=== PATIENT | female | born 1990 | race African-American/Black ===

== ENCOUNTER 2020-05-08 21:29 | Emergency (ER) | payer OTHER ==
[~2020-05-08] VITALS: Ht 167.6 cm; Wt 78.6 kg
[2020-05-08] MEDS ORDERED: PRENTAB53 PO (21:44)
[2020-05-08 23:17] LABS: BASO % 0.5 % (0.0-1.0); EOS # 0.2 10^3/uL (0.0-0.5); EOS % 1.8 % (0.0-3.0); HEMATOCRIT 38.1 % (36.0-47.0); HEMOGLOBIN 12.5 g/dl (12.0-15.5); LYMPH # 2.2 10^3/uL (1.5-5.0); LYMPH % 26.7 % (24.0-44.0); MEAN CORPUSCULAR HEMOGLOBIN 29.5 pg (27.0-33.0); MEAN CORPUSCULAR HGB CONC 32.8 g/dl (32.0-36.5); MEAN CORPUSCULAR VOLUME 89.9 fl (80.0-96.0); MONO # 0.6 10^3/uL (0.0-0.8); MONO % 7.4 % (2.0-8.0); NEUTROPHILS # 5.2 10^3/uL (1.5-8.5); NEUTROPHILS % 63.2 % (36.0-66.0); PLATELET COUNT, AUTOMATED 233 10^3/uL (150-450); RED BLOOD COUNT 4.24 10^6/uL (4.00-5.40); WHITE BLOOD COUNT 8.2 10^3/uL (4.0-10.0)
[2020-05-08 23:25] LABS: BLOOD UREA NITROGEN 9 MG/DL (7-18); CARBON DIOXIDE LEVEL 27 MEQ/L (21-32); CHLORIDE LEVEL 105 MEQ/L (98-107); CREATININE FOR GFR 0.99 MG/DL (0.55-1.30); GLOMERULAR FILTRATION RATE > 60.0 (>60); GLUCOSE, FASTING 111 MG/DL (70-100); POTASSIUM SERUM 3.6 MEQ/L (3.5-5.1); SODIUM LEVEL 140 MEQ/L (136-145)
[2020-05-09 00:07] LABS: APPEARANCE, URINE CLOUDY (CLEAR); BACTERIA, URINE AUTO NEGATIVE (NEGATIVE); BILIRUBIN, URINE AUTO NEGATIVE (NEGATIVE); BLOOD, URINE BLOOD 2+ (NEGATIVE); COLOR, URINE AMBER (YELLOW); GLUCOSE, URINE (UA) AUTO NEGATIVE (NEGATIVE); KETONE, URINE AUTO NEGATIVE (NEGATIVE); LEUKOCYTE ESTERASE, URINE AUTO NEGATIVE (NEGATIVE); MUCUS, URINE SMALL (NEGATIVE); NITRITE, URINE AUTO NEGATIVE (NEGATIVE); PROTEIN, URINE AUTO 1+ mg/dL (NEGATIVE); RBC, URINE AUTO 2 /HPF (0-3); SPECIFIC GRAVITY URINE AUTO 1.026 (1.002-1.035); SQUAMOUS EPITHELIAL CELL UR AU 11 /HPF (0-6); UROBILINOGEN, URINE AUTO 0.2 mg/dL (0.0-2.0); WBC, URINE AUTO 0 /HPF (0-3)
--- NOTE | 2020-05-09 01:50 | REPVR ---
PROCEDURE INFORMATION: Exam: US , Limited Exam date and time: 05/09/2020 1:06 AM Age: 29 years old Clinical indication: Lmp or gestational age (in weeks): 01/22/20; Antepartum complications; Bleeding; ; Additional info: Vaginal bleeding, 15 weeks TECHNIQUE: Imaging protocol: Real-time ultrasound of the maternal uterus with image documentation. Exam focused on the clinical indication. COMPARISON: No relevant prior studies available. FINDINGS: Gestation: There is a single live intrauterine . heart rate: 147 bpm Presentation: Transverse lie with the head on the maternal left. Placenta: Right lateral and posterior location. Grade 0. No placenta previa or placental abruption. Amniotic fluid: Normal. Amniotic fluid index: 8.9 cm MATERNAL: Uterus: There is a 3.1 cm x 2.7 cm x 3.8 cm fibroid in the anterior midportion of the uterus. There is a 4.9 cm x 4.9 cm x 4.7 cm fibroid in the left lower uterine segment. There is a 5.5 cm x 5.2 cm x 6.4 cm fibroid in the right lower uterine segment. There is a 4.1 cm x 3.1 cm x 4.2 cm fibroid in the right lower posterior uterine segment. Cervix: The cervix is closed and measures 4.7 cm in length. IMPRESSION: 1. Single live intrauterine without evidence for placenta previa or placental abruption. 2. Multiple uterine fibroids. Electronically signed by: Joselito Miller On 05/09/2020 01:50:17 AM
[2020-05-09] MEDS ORDERED: RHOGAM 300 MCG (1500 IU) INJ (J2790) IM ONE (02:15)
[2020-05-09 02:43] LABS: CHLAMYDIA DNA AMPLIFICATION NEGATIVE (NEGATIVE); GC DNA AMPLIFICATION NEGATIVE (NEGATIVE)
[2020-05-09] MEDS ORDERED: METR-265 PO (03:04)
[2020-05-09 03:30] VITALS: BP 109/57
== END 2020-05-09 03:41 | disposition home or self-care (01) ==
LOC: M ED 21:29
DX: O46.92 Antepartum hemorrhage, unspecified, second trimester (principal); O26.892 Other specified pregnancy related conditions, second trimester; R10.2 Pelvic and perineal pain; Z3A.15 15 weeks gestation of pregnancy; Z91.013 Allergy to seafood; Z79.899 Other long term (current) drug therapy
CPT/HCPCS: 36415; 76815; 80048; 81001; 85025; 86850; 86900; 86901; 87086; 87210; 87491; 87591; 96372; 99284; J2790

== ENCOUNTER 2020-07-14 19:47 | Outpatient (CLI) | payer OTHER ==
[~2020-07-14] VITALS: Ht 165.1 cm; Wt 88.5 kg
[~2020-07-14 19:47] MED LIST: METR-265 PO; PRENTAB53 PO
--- NOTE | 2020-07-14 22:06 | IPNPDOC ---
Text Note Date of Service The patient was seen on 07/14/20. NOTE S: 29yo , brayan [id number] @24+6 presents to triage with c/o urinary pain. Denies bleeding, LOF, contractions, states reassuring FM. Denies fever, chills, body aches, back pain, vaginal discharge, burning, itching or odor. Current medications: PNV O: VSS FHR 140, reassuring, appropriate for gestational age, no contractions noted on TOCO Neg UA, Culture pending -CVAT No pubic symphysis tenderness, fundal tenderness, abdominal tenderness Upon questioning pt states difficulty emptying bladder, lower abdominal tenderness and tugging pain which improved with lifting. A:suspected condition not found Normal discomforts of [id number] P:Reviewed comfort measures Safe use of otc medications hydration activity fitted for maternity support belt with expressed relief Reviewed reasons to return for care and contact information with expressed understanding JEFFERY PICKETT CNM July 14, 2020 22:06
== END 2020-07-14 21:40 | disposition home or self-care (01) ==
LOC: M LDO 19:47
PROVIDERS: ATTEND Registered Nurse
DX: O26.892 Other specified pregnancy related conditions, second trimester (principal); R30.0 Dysuria; Z3A.24 24 weeks gestation of pregnancy; Z91.013 Allergy to seafood
CPT/HCPCS: 81001; G0378; G0463

== ENCOUNTER 2020-07-26 18:11 | Outpatient (CLI) | payer OTHER ==
[~2020-07-26] VITALS: Ht 165.1 cm; Wt 88.2 kg
[2020-07-26 18:23] VITALS: BP 109/67
[2020-07-26 19:45] VITALS: BP 109/62
--- NOTE | 2020-07-26 20:00 | IPNPDOC ---
Text Note Date of Service The patient was seen on 07/26/20. NOTE 29 yo at 26+3 weeks gestation presented to L&D with the complaint of rectal bleeding. she reports being on the toilet and passing gas and then there was blood in the toilet. This frightened her. It happened a couple weeks ago too. She denies any pain anywhere to include rectal, vaginal, pelvic, or abdominal. She also denies any vaginal bleeding, discharge, or leakage of fl uid. She endorses feeling lots of movement. Chaperoned by L&D RN Vitals - VSS, afebrile, normotensive, non tachycardic General - AAOX3, sitting up in bed, NAD, pleasant and conversant Abdomen - Gravid uterus appropriate size for gestational age. No fundal tenderness Perineal exam - Normal labia and vaginal introitus. No blood near the vagina. Large external hemorrhoid present with irritation. Digital exam confirmed internal hemorrhoid as well. FHR tracing - Appropriate for gestational age with moderate variability. No decels. No ctx on toco. Suspect blood related to hemorrhoids. No current bleeding. No obstetric complaints. Reassuring status. Recommended fruits and vegetables and stool softeners to maintain regular, soft bowel movements. Follow up in 2 weeks for OB appt a scheduled. Return to care sooner for worsening symptoms or any other urgent concerns. All questions answered. 30 minutes of care Mason Don, I+O Mason SOLIMAN, I+O Vital Signs Date Time Temp Pulse Resp B/P (MAP) Pulse Ox O2 Delivery O2 Flow Rate FiO2 07/26/20 19:45 97.9 89 18 109/62 (78) Room Air BARBARA PINZON DO July 26, 2020 20:00
== END 2020-07-26 20:00 | disposition home or self-care (01) ==
LOC: M LDO 18:11
PROVIDERS: ATTEND Registered Nurse
DX: O22.42 Hemorrhoids in pregnancy, second trimester (principal); Z3A.26 26 weeks gestation of pregnancy; Z91.013 Allergy to seafood
CPT/HCPCS: G0378; G0463

== ENCOUNTER 2020-10-08 07:14 | Inpatient (IN) | payer OTHER ==
[~2020-10-08] VITALS: Ht 167.6 cm; Wt 90.0 kg
[~2020-10-08 07:14] MED LIST changes: +PREN1CHW PO; +ceFAZolin SOD 2 GM in IV 1 EA IV ONE
[2020-10-08 08:23] VITALS: BP 113/73
[2020-10-08 08:40] LABS: HEMATOCRIT 38.2 % (36.0-47.0); HEMOGLOBIN 12.8 g/dl (12.0-15.5); MEAN CORPUSCULAR HEMOGLOBIN 30.3 pg (27.0-33.0); MEAN CORPUSCULAR HGB CONC 33.5 g/dl (32.0-36.5); MEAN CORPUSCULAR VOLUME 90.5 fl (80.0-96.0); PLATELET COUNT, AUTOMATED 190 10^3/uL (150-450); RED BLOOD COUNT 4.22 10^6/uL (4.00-5.40); WHITE BLOOD COUNT 7.5 10^3/uL (4.0-10.0)
[2020-10-08] MEDS: LR 1,000 ML IV SCH ×2 (09:00→17:28)
[2020-10-08] MEDS ORDERED: MORPHINE PRES-FREE INJ 10 MG/10 ML VIAL (J2274) As Ordered ONE (09:24)
[2020-10-08] MEDS ORDERED: KETOROLAC 60MG 2ML VIAL As Ordered ONE (09:25)
[2020-10-08] MEDS ORDERED: PHENYLephrine 500MCG 5ML (100MCG/ML) SYRINGE As Ordered ONE (09:25)
[2020-10-08] MEDS ORDERED: ePHEDrine SULFATE 25 MG/5 ML(5MG/ML) SYRINGE As Ordered ONE (09:25)
[2020-10-08] MEDS ORDERED: OXYTOCIN INJ 10 UNITS/ML VIAL (J2590) As Ordered ONE (09:25)
[2020-10-08] MEDS ORDERED: dexameTHASONE 4 MG/ML 1ML VIAL (J1100 PER 1MG) As Ordered ONE (09:25)
[2020-10-08] MEDS ORDERED: OXYTOCIN 30 UNITS IN 0.9% NaCl 500ML IV BAG (J2590) As Ordered ONE ×2 (09:26→12:29)
[2020-10-08] MEDS: BICITRA 30ML SOLN UDC PO SCH (10:21)
[2020-10-08] MEDS ORDERED: NALOXONE INJ 0.4MG/1ML VIAL (J2310 PER 1MG) IV PRN ×2 (10:34)
[2020-10-08] MEDS ORDERED: ONDANSETRON 4MG/2ML VIAL IV PRN ×2 (10:34→12:35)
[2020-10-08] MEDS ORDERED: diphenhydrAMINE 50MG/ML VIAL (J1200) IV PRN (10:34)
[2020-10-08] MEDS ORDERED: NALBUPHINE HCL 10 MG/ML AMP (J2300) IV PRN ×2 (10:34→12:35)
[2020-10-08] MEDS ORDERED: METOCLOPRAMIDE INJ 10MG/2ML VIAL (J2765 PER 1) IV PRN (10:34)
[2020-10-08 11:28] LABS: CORD GAS ABE V -1.1; CORD GAS O2 SAT V 51.7 %; CORD GAS PCO2 V 46.9 mmHg; CORD GAS PH V 7.345 UNITS; CORD GAS PO2 V 20.9 mmHg; CORD GAS SBC V 22.4 MEQ/L; CORD GAS TCO2 V 26.5 MEQ/L
[2020-10-08 11:30] LABS: CORD GAS ABE A -2.7; CORD GAS HCO3 A 25.1 MEQ/L; CORD GAS O2 SAT A 18.7 %; CORD GAS PCO2 A 55.1 mmHg; CORD GAS PH A 7.276 UNITS; CORD GAS PO2 A 12.1 mmHg; CORD GAS SBC A 20.4 MEQ/L; CORD GAS TCO2 A 26.8 MEQ/L
[2020-10-08] MEDS ORDERED: ACETAMINOPHEN 500 MG TAB PO PRN (12:05)
[2020-10-08] MEDS ORDERED: SIMETHICONE 80MG CHEW TAB PO PRN (12:05)
[2020-10-08] MEDS ORDERED: PROMETHAZINE 25 MG TAB PO PRN (12:05)
[2020-10-08] MEDS ORDERED: OXYTOCIN DRIP 30 UNITS in IV 1 EA IV SCH (12:05)
[2020-10-08] MEDS ORDERED: oxyCODONE 5MG TAB PO PRN ×2 (12:05→12:35)
[2020-10-08] MEDS ORDERED: MEASLES,MUMPS,RUBELLA VACCINE INJ (MMR-II) (90707) SC SCH (12:05)
[2020-10-08] MEDS ORDERED: DOCUSATE SODIUM 100MG CAPSULE PO PRN (12:05)
[2020-10-08] MEDS ORDERED: IBUPROFEN 800 MG TAB PO PRN (12:05)
[2020-10-08] MEDS ORDERED: RHOGAM 300 MCG (1500 IU) INJ (J2790) IM SCH (12:05)
[2020-10-08] MEDS ORDERED: METOCLOPRAMIDE INJ 10MG/2ML VIAL (J2765 PER 1) As Ordered ONE (12:07)
[2020-10-08] MEDS ORDERED: MEPERIDINE INJ 25 MG/ML VIAL (J2175) IV PRN (12:35)
[2020-10-08] MEDS ORDERED: HYDROMORPHONE HCL 0.5 MG/ 0.5 ML SYRINGE (J1170 PER 1) IV PRN (12:35)
[2020-10-08] MEDS ORDERED: fentaNYL 100 MCG/2 ML INJECTION (J3010) IV PRN (12:35)
[2020-10-08] MEDS ORDERED: ONDANSETRON 4MG/2ML VIAL As Ordered ONE (13:01)
[2020-10-08] MEDS ORDERED: LR 1,000 ML IV ONE ×2 (13:30→21:45)
--- NOTE | 2020-10-08 13:36 | RO ---
OPERATIVE NOTE DATE OF OPERATION: 10/08/2020 PREOPERATIVE DIAGNOSIS: History of myomectomy, enlarged fibroid uterus. POSTOPERATIVE DIAGNOSIS: History of myomectomy, enlarged fibroid uterus. PROCEDURE: Primary . SURGEON: Darin French DO HUMANITIES DIVISION CHAIR: Omega De Guzman DO ANESTHESIA: Spinal. IV FLUIDS: 1100 mL LR. URINE OUTPUT: 200 mL via Adams catheter. EBL: 600 mL. ANTIBIOTICS: 2 gm Ancef before case start. COMPLICATIONS: None. OPERATIVE FINDINGS: Viable male infant found and delivered in cephalic presentation. Clear amniotic fluid noted upon entry into the uterus. weight 2750 grams or 6 pounds 1 ounce. Apgars 8 and 9. Uterus appeared extensively enlarged with large fundal fibroid and lower uterine segment anterior fibroid. Scars throughout the uterus consistent with prior myomectomy. Fallopian tubes and ovaries unable to be visualized bilaterally. DESCRIPTION OF PROCEDURE: The risks, benefits, indications, and alternatives of the procedure were reviewed with the patient and informed consent was obtained. The patient was taken to the operating room where spinal anesthesia was obtained and found to be adequate. She was then prepped and draped in the usual sterile fashion in the dorsal supine position with a leftward tilt. A surgical time out was then performed and the patient's identity and planned procedure were verified with the operative team. A Pfannenstiel skin incision was then made with a scalpel and carried through to the underlying layer of fascia using Bovie electrocautery. The fascia was incised in the midline and the incision was extended laterally with Thompson scissors. The superior aspect of the fascial incision was grasped with Jeannine clamps, elevated, and the underlying rectus muscles were dissected off with Thompson scissors. Attention was then turned to the inferior aspect of this incision, which in similar fashion, was grasped, tented up with Jeannine clamps and the rectus muscles were dissected off via blunt dissection and with Thompson scissors. The rectus muscles were then in the midline. The peritoneum was identified, tented up, and entered digitally. The peritoneal incision was then extended horizontally and superiorly with good visualization of the bladder. A mobius self-retaining retractor was then introduced into the abdomen. The uterus was inspected. A large fundal fibroid was noted anteriorly. There was a lower uterine segment fibroid low on the uterus just superior to the bladder approximately 5 cm in size. The uterus had multiple defects consistent with prior myomectomy, including a large defect in the middle. The fallopian tubes and ovaries were unable to be visualized bilaterally. The uterine incision was placed superiorly to the vesicouterine peritoneum at a prior defect from her myomectomy. The mid uterus was incised in a transverse fashion with the scalpel. The amniotic sac was artificially ruptured, productive of clear fluid. The uterine incision was then extended manually and with bandage scissors on both sides. The infant was found to be in cephalic presentation. The baby was then delivered without difficulty through the hysterotomy. The cord was doubly clamped and cut. The infant was handed off to the awaiting team. The placenta was then removed manually with gentle traction on the cord. The uterus was then cleared of all clots and debris. The uterine incision was then repaired with #0 Vicryl suture in a running, locked fashion. A [id number] suture was placed in the midline of the hysterotomy to approximate the extended tissue. A second suture layer of #0 Monocryl was then used to imbricate the hysterotomy in a vertical fashion. Irrigation was then performed. The hysterotomy was noted to be hemostatic. A small degree of oozing bleeding was noted just inferior to the hysterotomy and this was controlled with [id number] sutures of 3-0 Vicryl. Inspection of hysterotomy and lower uterine segment revealed excellent hemostasis. Roberto was applied to the hysterotomy and the lower uterine segment. The Mobius self-retaining retractor was then removed from the patient's abdomen. The peritoneum was then closed with 3-0 Vicryl suture in running fashion. The fascia was closed with #0 Vicryl suture in a running fashion. The subcutaneous fat was then closed with 3-0 Vicryl suture in a running fashion. The skin was then closed with 4-0 Monocryl suture in a subcuticular fashion. The incision was then dressed with a pressure dressing. At the completion of the case a bimanual exam was performed which revealed good uterine tone and minimal vaginal bleeding. The patient tolerated the procedure well. Sponge, instrument, needle, and lap counts were correct x3. The patient was taken to the recovery room in stable condition. FABIOLA
[2020-10-08] MEDS ORDERED: diphenhydrAMINE 50MG/ML VIAL (J1200) IV STA (13:47)
[2020-10-08 13:48] VITALS: BP 135/77
[2020-10-08 14:21] VITALS: BP 125/73
[2020-10-08 15:19] VITALS: BP 136/74
[2020-10-08] MEDS: KETOROLAC 30 MG/ML 1ML VIAL IV SCH ×2 (17:29→23:39)
[2020-10-08 18:04] VITALS: BP 117/66
[2020-10-08 21:10] VITALS: BP 116/64
[2020-10-08 22:11] LABS: HEMATOCRIT 36.3 % (36.0-47.0); MEAN CORPUSCULAR HEMOGLOBIN 30.6 pg (27.0-33.0); MEAN CORPUSCULAR HGB CONC 33.1 g/dl (32.0-36.5); MEAN CORPUSCULAR VOLUME 92.6 fl (80.0-96.0); PLATELET COUNT, AUTOMATED 171 10^3/uL (150-450); RED BLOOD COUNT 3.92 10^6/uL (4.00-5.40); WHITE BLOOD COUNT 13.4 10^3/uL (4.0-10.0)
[2020-10-09] MEDS: LR 1,000 ML IV SCH ×3 (01:13→21:35)
[2020-10-09 02:00] VITALS: BP 112/60
[2020-10-09] MEDS: KETOROLAC 30 MG/ML 1ML VIAL IV SCH (05:52)
[2020-10-09 06:00] VITALS: BP 118/67
[2020-10-09] MEDS: BICITRA 30ML SOLN UDC PO SCH (06:00)
[2020-10-09] MEDS ORDERED: LR 1,000 ML IV ONE (06:50)
[2020-10-09 07:11] LABS: HEMATOCRIT 31.5 % (36.0-47.0); HEMOGLOBIN 10.5 g/dl (12.0-15.5); MEAN CORPUSCULAR HEMOGLOBIN 30.7 pg (27.0-33.0); MEAN CORPUSCULAR HGB CONC 33.3 g/dl (32.0-36.5); MEAN CORPUSCULAR VOLUME 92.1 fl (80.0-96.0); PLATELET COUNT, AUTOMATED 192 10^3/uL (150-450); RED BLOOD COUNT 3.42 10^6/uL (4.00-5.40)
[2020-10-09 07:34] LABS: ALBUMIN 2.2 GM/DL (3.2-5.2); ALT/SGPT 23 U/L (12-78); BILIRUBIN,TOTAL 0.3 MG/DL (0.2-1.0); BLOOD UREA NITROGEN 8 MG/DL (7-18); CALCIUM LEVEL 8.8 MG/DL (8.5-10.1); CARBON DIOXIDE LEVEL 26 MEQ/L (21-32); CHLORIDE LEVEL 109 MEQ/L (98-107); CREATININE FOR GFR 0.72 MG/DL (0.55-1.30); GLOMERULAR FILTRATION RATE > 60.0 (>60); GLUCOSE, FASTING 84 MG/DL (70-100); SODIUM LEVEL 141 MEQ/L (136-145); TOTAL PROTEIN 5.2 GM/DL (6.4-8.2)
[2020-10-09] MEDS ORDERED: ISOVUE-370 76% 100ML VIAL As Ordered ONE (07:44)
[2020-10-09] MEDS: PRENATAL VITAMINS CHEWABLE TABLET PO SCH (08:32)
--- NOTE | 2020-10-09 08:34 | REP ---
INDICATION: post c section oliguria. Please assess ureters and bladder. COMPARISON: None. TECHNIQUE: A bolus 100 mL Isovue 370 scanning through the abdomen and pelvis with both coronal and sagittal reconstructions provided. Delayed images were also performed. FINDINGS: CT abdomen/pelvis: There is some basilar subsegmental atelectasis posteriorly in the deep sulci of the lower lobes left greater than right. And no definite effusion. No gross cardiomegaly pericardial thickening or effusion. No hiatal hernia liver, spleen, gallbladder, pancreas, adrenal glands and stomach were grossly unremarkable. Abdominal the portion of the colon shows stool and gas present there is trace amount of fluid in the peritoneal gutter on the left more than right. No perihepatic or perisplenic ascites. Stool and gas throughout the colon. The inferior margin of the colon is a irregular rim calcified mass may reflect a pedunculated calcified fibroid from the uterus the uterus is very large in this patient is status post section it measures 23 x 2415.8 cm. Heterogeneous low-attenuation areas scattered throughout consistent with fibroids. There is low-density heterogeneous nature in the endometrial cavity suggesting blood products. There is a trace amount of the free air are related to the just completed section. Some subcutaneous air in the anterior abdominal noted wall as well. The kidneys show symmetric enhancement. There is no mass, cyst, stone or hydronephrosis. I see no definite ureteral dilatation on the delayed images. Adams catheter in the bladder and contrast on delayed images noted within the bladder. There is no pelvic ascites or contrast leak. Trace amount of air in the bladder likely related to Adams catheter insertion. No ventral or inguinal hernia. Small bowel loops in the upper abdomen unremarkable. Distal left colon sigmoid and rectum unremarkable. Bone window review shows no spine, pelvis, hip or visible rib abnormalities. IMPRESSION: 9 1. Postoperative changes with the small amounts of free intraperitoneal air related to section. Very large uterus with heterogeneous myometrium consistent with fibroids as seen on Ob ultrasound 05/09/2020. Uterus measures 24 x 23 x 15.8 cm. Some of heterogeneous fluid in the endometrial cavity. Apparent pedunculated heavily calcified fibroid along the right lateral aspect of the uterus abutting the cecum. 2. Colon, small bowel loops, stomach and appendix grossly unremarkable. 3. Bilateral kidneys with symmetric enhancement, no obstruction, ureteral dilatation or urinary ascites evident. Contrast reaches the bladder with a Adams catheter in the bladder. <Electronically signed by Minh Fritz > 10/09/20 [id number]
[2020-10-09] MEDS: oxyCODONE 5MG TAB PO PRN ×2 (08:40→18:03)
[2020-10-09 10:00] VITALS: BP 118/59
--- NOTE | 2020-10-09 10:19 | IPNPDOC ---
Progress Note Date of Service: Oct 09, 2020 Progress Note 29 yo female POD#1 s/p uncomplicated, scheduled PLTCS yesterday due to a previous a history of extensive myomectomy. Overnight, she had minimal urine output. She hasn't been able to tolerate PO intake secondary to nausea and vomiting. This morning Ivonne reports feeling better. She was able to tolerate some small sips without vomiting. Pain is well controlled. She has been ambulating. Lochia is minimal. Vitals - VSS, afebrile, normotensive, non tachycardic General - AAOX3, sitting up in bed, pleasant and conversant, NAD. Facial edema noted. Abdomen - enlarged fibroid uterus. Soft. Minimal tenderness to palpation. Bandage in place over incision. No strikethrough. Extremities - SCDs in place. Edematous lower extremities - chung bag at bedside, clear urine but dark appearing. ~80ml in bag UO - oliguric. <30ml / hour Labs: pre op H/H ~ ---> post op this AM ~01/13 BMP this AM - 141/5.0---109/26--8/0.72<84 AST/ALT this AM - Rads (CT ab/pel with contrast this AM) No acute findings. Enlarged fibroid uterus. Normal appearing bladder and ureters. Trace free air and trace fluid c/w recent c section. Bowel unremarkable. No extravasation of contrast. Clinically Ivonne appears well. Oliguria likely secondary to dehydration from multiple episodes of vomiting and recent surgery. She may also be third spacing given her generalized edema. No evidence of surgical complication such as bleeding or urinary tract injury. Will maintain continuous IV fluids with boluses as needed. Could also consider dose of lasix if edema / third spacing continues to be a concern. Kidney function remains normal. Otherwise continue routine post op care. All patient and questions answered. Manolo VS, I&O, 24H, Mason Vital Signs/I&O Vital Signs Date Time Temp Pulse Resp B/P (MAP) Pulse Ox O2 Delivery O2 Flow Rate FiO2 10/09/20 08:45 18 Room Air 10/09/20 06:00 98.2 90 118/67 (84) 99 I&O- Last 24 Hours up to 6 AM 10/09/20 06:00 Intake Total 3573 ml Output Total 1026 ml Balance 2547 ml Laboratory Data 24H LABS Laboratory Tests 2 10/08/20 11:12: Cord Arterial Blood pH 7.276, Cord Arterial Blood PCO2 55.1, Cord Arterial Blood PO2 12.1, Cord Arterial Blood HCO3 25.1, Cord Arterial Blood Total CO2 26.8, Cord Arterial Blood Base Excess -2.7, Cord Arterial Base Excess (Standard 20.4, Cord Arterial Bld Oxygen Saturation 18.7, Cord Venous Blood pH 7.345, Cord Venous Blood PCO2 46.9, Cord Venous Blood PO2 20.9, Cord Venous Blood HCO3 25.0, Cord Venous Blood Total CO2 26.5, Cord Venous Base Excess (Actual) -1.1, Cord Venous Base Excess (Standard) 22.4, Cord Venous Blood Oxygen Saturation 51.7 10/08/20 22:05: Nucleated Red Blood Cells % (auto) 0.0 10/09/20 06:44: Nucleated Red Blood Cells % (auto) 0.0, Anion Gap 6L, Glomerular Filtration Rate > 60.0, Calcium Level 8.8, Total Bilirubin 0.3, Aspartate Amino Transf (AST/SGOT) 24, Alanine Aminotransferase (ALT/SGPT) 23, Alkaline Phosphatase 160H, Total Protein 5.2L, Albumin 2.2L, Albumin/Globulin Ratio 0.7L CBC/BMP Laboratory Tests 10/08/20 22:05 10/09/20 06:44 BARBARA PINZON DO Oct 09, 2020 10:19
[2020-10-09] MEDS: IBUPROFEN 800 MG TAB PO SCH ×2 (13:59→19:57)
[2020-10-09 14:18] VITALS: BP 116/78
[2020-10-09 17:53] VITALS: BP 124/71
--- NOTE | 2020-10-09 18:09 | IPN ---
PROGRESS NOTE DATE: 10/08/2020 SUBJECTIVE: This patient's requested circumcision of their male infant. After discussing risks and benefits of circumcision, the medical, the nonmedical indications, the penile block and aftercare, he expressed understanding of penile block aftercare and bleeding, signed the consent form. All questions were answered. Twenty minute discussion. We await clearance by the airport traffic controller. cc: Jimbo [facility]
[2020-10-09 22:00] VITALS: BP 116/71
[2020-10-10] MEDS: oxyCODONE 5MG TAB PO PRN (01:17)
[2020-10-10 02:00] VITALS: BP 124/69
[2020-10-10] MEDS: IBUPROFEN 800 MG TAB PO SCH (05:03)
[2020-10-10] MEDS: LR 1,000 ML IV SCH (05:30)
[2020-10-10 06:00] VITALS: BP 130/84
[2020-10-10] MEDS ORDERED: DOK1CAP7 PO (06:32)
[2020-10-10] MEDS ORDERED: OXYC-517 PO (06:32)
[2020-10-10] MEDS ORDERED: IBUP80TA PO (06:32)
--- NOTE | 2020-10-10 07:42 | DSES ---
DISCHARGE SUMMARY DATE OF ADMISSION: 10/08/2020 DATE OF DISCHARGE: 10/10/2020 BRIEF HISTORY: This lady is admitted for primary section because of a history of myomectomy, livebirth male infant, 6 pounds, 1 ounce, 2750 grams, Apgars of 8 and 9 at 1 and 5 minutes respectively. Arterial pH 7.27, base excess -2.7, venous pH 7.34, base excess -1.1. The second day we discussed phlebitis, cystitis, mastitis, endometritis, cellulitis, diet, exercise, pain management, perineal, breast and wound care. The rest of the examination was unremarkable. Normocephalic, atraumatic. Neck: Full range of motion. Pupils equal and reactive to light. Distal pulses are symmetric. No evidence of DVT, PE or superficial phlebitis. Chest is clear bilaterally at bases. No wheezes or rhonchi. No CVA tenderness. Abdomen is soft, four quadrant bowel sounds are noted. The incision is clean and dry. The uterus is below but there are multiple fibroids within the uterus. No arthralgias or myalgias. No complaint of joint pain. No complaint of cough, wheeze, shortness of breath or dyspnea on exertion. No nausea, vomiting, diarrhea or constipation. No urgency or frequency. Patient has had a bowel movement, voiding well, breast feeding is going well. On discharge her hemoglobin was 10.5, hematocrit 31.5 and platelets are 192,000. Vital signs: Her blood pressure is 124/69, respirations 18, pulse is 93, temperature is 98.3. We discussed the medication pickup at [place], two week incision check and six week check at [facility]. All questions were answered, 20 minute discussion. Patient expressed understanding of same, was discharged improved. cc: [facility]
[2020-10-10] MEDS: PRENATAL VITAMINS CHEWABLE TABLET PO SCH (09:00)
== END 2020-10-10 12:50 | disposition home or self-care (01) | DRG 773 ==
LOC: M LDI 07:14 → M OBS 13:40
PROVIDERS: ADMIT Obstetrics & Gynecology; ATTEND Obstetrics & Gynecology
PROC: 10D00Z1 Extraction of Products of Conception, Low, Open Approach (ICD-10-PCS; principal; 2020-10-08 09:30)
DX: O34.13 Maternal care for benign tumor of corpus uteri, third trimester (principal); Z3A.37 37 weeks gestation of pregnancy; Z37.0 Single live birth

== ENCOUNTER 2020-12-31 15:24 | Emergency (ER) | payer OTHER ==
[~2020-12-31] VITALS: Ht 167.6 cm; Wt 87.1 kg
[2020-12-31 15:24] VITALS: BP 132/69
[~2020-12-31 15:24] MED LIST changes: +DOK1CAP4 PO; +IBUP80TA PO; +OXYC-517 PO; -ceFAZolin SOD 2 GM in IV 1 EA IV ONE
== END 2020-12-31 18:05 | disposition home or self-care (01) ==
LOC: M ED 15:24
DX: M77.11 Lateral epicondylitis, right elbow (principal); M65.4 Radial styloid tenosynovitis [de Quervain]; S56.511A Strain of other extensor muscle, fascia and tendon at forearm level, right arm, initial encounter; X50.0XXA Overexertion from strenuous movement or load, initial encounter; Y92.9 Unspecified place or not applicable; Y93.9 Activity, unspecified; Y99.9 Unspecified external cause status; Z87.42 Personal history of other diseases of the female genital tract